=== PATIENT | female | born 1980 | race Caucasian/White ===

== ENCOUNTER → 2016-11-18 | Outpatient (CLI) | payer OTHER ==
[2016-11-18 10:42] LABS: CH 32.1; CHCM 33.7; HDW 2.52; HGB 13.9 gm/dL (11.4-16.0); MCH 31.7 pg (25.0-35.0); MCHC 33.1 g/dL (31.0-37.0); MCV 95.7 fL (80.0-100.0); Mean Platelet Volume 7.3; RBC 4.39 m/uL (3.80-5.40); RDW 12.3 % (11.5-15.5); WBC 7.1 k/uL (3.8-10.6)
[2016-11-18 11:15] LABS: Hemoglobin A1C 4.9 % (4.2-6.1)
[2016-11-18 11:20] LABS: ALT 23 U/L (9-52); AST 17 U/L (14-36); Alkaline Phosphatase 44 U/L (38-126); Anion Gap 11 mmol/L; Blood Urea Nitrogen 10 mg/dL (7-17); Calcium 9.3 mg/dL (8.4-10.2); Carbon Dioxide 26 mmol/L (22-30); Chloride 106 mmol/L (98-107); Glucose 97 mg/dL (74-99); Non-African American GFR(MDRD) >60 (>60 ml/min/1.73 sqM); Potassium 3.9 mmol/L (3.5-5.1); Sodium 143 mmol/L (137-145); Total Bilirubin 0.9 mg/dL (0.2-1.3); Total Protein 7.5 g/dL (6.3-8.2)
[2016-11-18 11:23] LABS: Follicle Stimulating Hormone 1.9 mIU/mL
[2016-11-18 11:24] LABS: Appearance,Urine Clear (Clear); Bilirubin,Urine Negative (Negative); Glucose,Urine (UA) Negative (Negative); Ketones,Urine Negative (Negative); Leukocyte Esterase,Urine Small (Negative); Mucus,Urine Occasional /hpf; Nitrite,Urine Negative (Negative); Particle Count 6796; Protein,Urine Trace (Negative); RBC,Urine 14 /hpf (0-5); Specific Gravity,Urine 1.024 (1.001-1.035); Squamous Epithelial Cell,Urine 5 /hpf (0-4); UA Billing (MACRO vs. MICRO) MICRO; Urobilinogen,Urine <2.0 mg/dL (<2.0); WBC,Urine 5 /hpf (0-5)
== END | disposition home or self-care (01) ==
LOC: LABWHC1 10:01
PROVIDERS: ATTEND Family Medicine
DX: Z00.00 Encounter for general adult medical examination without abnormal findings (principal)
CPT/HCPCS: 36415; 80053; 81001; 82533; 83001; 83036; 84439; 84443; 85027

== ENCOUNTER → 2020-03-26 | Outpatient (CLI) | payer OTHER ==
--- NOTE | 2020-03-26 12:42 | ECHOF ---
Referral Reason:R07.9 atypical chest pain MEASUREMENTS -------- HEIGHT: 180.3 cm WEIGHT: 78.5 kg BP: RVIDd: 2.8 cm (< 3.3) IVSd: 1.2 cm (0.6 - 1.1) LVIDd: 3.7 cm (3.9 - 5.3) LVPWd: 1.4 cm (0.6 - 1.1) IVSs: 1.6 cm LVIDs: 2.3 cm LVPWs: 1.7 cm LAESV Index (A-L): 15.66 ml/m Ao Diam: 3.1 cm (2.0 - 3.7) AV Cusp: 2.1 cm (1.5 - 2.6) MV EXCURSION: 17.310 mm (> 18.000) MV EF SLOPE: 100 mm/s (70 - 150) EPSS: 0.8 cm MV E Moses: 0.59 m/s MV DecT: 172 ms MV A Moses: 0.53 m/s MV E/A Ratio: 1.11 RAP: 5.00 mmHg RVSP: 17.61 mmHg FINDINGS -------- Sinus rhythm. This was a technically adequate study. The left ventricular size is normal. There is mild concentric left ventricular hypertrophy. Overa ll left ventricular systolic function is normal with, an EF between 55 - 60 %. The diastolic fillin g pattern is normal for the age of the patient 6.68. The right ventricle is normal in size. Normal LA size by volume 22+/-6 ml/m2. The right atrial size is normal. Interatrial and interventricular septum intact. The aortic valve is trileaflet and appears structurally normal. There is no evidence of aortic regu rgitation. There is no evidence of aortic stenosis. No mitral regurgitation. Trace tricuspid regurgitation present. There is no evidence of pulmonary hypertension. The right ventricular systolic pressure, as measured by Doppler, is 17.61mmHg. There is no pulmonic regurgitation present. The aortic root size is normal. Normal inferior vena cava with normal inspiratory collapse consistent with estimated right atrial pre ssure of 5 mmHg. There is no pericardial effusion. CONCLUSIONS -------- 1. The left ventricular size is normal. 2. There is mild concentric left ventricular hypertrophy. 3. Overall left ventricular systolic function is normal with, an EF between 55 - 60 %. 4. The diastolic filling pattern is normal for the age of the patient 6.68 5. Trace tricuspid regurgitation present. SERVICE DESK SPECIALIST: Suzanne Franklin RDCS
--- NOTE | 2020-03-26 16:31 | EST ---
EXERCISE STRESS AGE: 50 SEX: F HT: 5'11" WT: 173 lbs. PROTOCOL: Jacob STAGE: 5 DURATION OF EXERCISE: 12:45 HEART RATE REST: 87 BLOOD PRESSURE REST: 101/72 MAXIMUM HEART RATE ACHIEVED: 182 MAXIMUM BLOOD PRESSURE: 162/75 85% MPHR: 153 100% MPHR: 180 METS: 13.1 INDICATIONS: Short of breath. CLINICAL INFORMATION: Baseline EKG revealed normal sinus rhythm without significant ST-T changes. Patient walked for 12 minute 45 seconds, achieved a maximal heart rate of 182 beats per minute which is well above 85% of predicted maximal. Patient did not have any angina or arrhythmia. There were no EKG changes to indicate ischemia. By EKG criteria, this is a negative stress test with excellent exercise capacity. FINAL IMPRESSION: 1. Excellent exercise capacity. 2. There was some artifact on the EKG tracings. 3. No evidence of stress-induced ischemia on the basis of EKG criteria. 4. Patient did not have any angina and there was no significant arrhythmia. MMODL / IJN: [id number] /
== END | disposition home or self-care (01) ==
LOC: RADNMMAIN 10:27
PROVIDERS: ATTEND Family Medicine
DX: I51.7 Cardiomegaly (principal)
CPT/HCPCS: 93017; 93306

== ENCOUNTER → 2020-12-19 | Outpatient (CLI) | payer OTHER ==
--- NOTE | 2020-12-19 10:02 | US ---
EXAMINATION TYPE: US abdomen limited DATE OF EXAM: 12/19/2020 COMPARISON: NONE CLINICAL HISTORY: R10.11 RUQ abdominal pain. Patient complains of bloating, nausea/vomiting x 3 weeks . EXAM MEASUREMENTS: Liver Length: 17.9 cm Gallbladder Wall: 0.2 cm CBD: 0.5 cm Right Kidney: 10.9 x 5.0 x 4.0 cm Pancreas: No masses seen. Tail obscured by overlying bowel gas Liver: wnl Gallbladder: Large size = 10.2 x 6.3 x 5.1 cm, 1.5 cm stone stuck in neck. Multiple other mobile sto edilson within GB. Evidence for sonographic Miller's sign: No CBD: wnl Right Kidney: No hydronephrosis or masses seen IMPRESSION: Cholelithiasis.
== END | disposition home or self-care (01) ==
LOC: RADUSWWP 08:58
PROVIDERS: ATTEND Family Medicine
DX: K80.20 Calculus of gallbladder without cholecystitis without obstruction (principal)
CPT/HCPCS: 76705

== ENCOUNTER 2021-01-11 06:19 | Day surgery (SDC) | payer OTHER ==
[2021-01-08 09:27] VITALS: BMI 25.1
[~2021-01-11 06:19] MED LIST: ACETAMINOPHEN TAB 500 MG TAB PO PRN; DEXAMETHASONE SOD PHOSPHATE 4 MG/ML 1 ML VIAL IV ONE; HEPARIN SODIUM,PORCINE/PF 5,000 UNIT/0.5 ML SYRINGE SQ PRN; LACTATED RINGERS 1,000 ML IV SCH; LIDOCAINE 1% (10MG/ML) FOR IV START INTRADERMA PRN; MIDAZOLAM 2 MG/2 ML VIAL IV PRN; ONDANSETRON 4 MG/2 ML VIAL IVP ONE
[2021-01-11 06:56] VITALS: TEMP 98
[2021-01-11] MEDS ORDERED: HYDROmorphone 0.5 MG/0.5 ML SYRINGE IVP PRN (07:00)
[2021-01-11] MEDS ORDERED: SUCCINYLCHOLINE CHLORIDE 100 MG/5 ML SYR IV ONE (08:00)
[2021-01-11] MEDS ORDERED: NEOSTIGMINE 1 MG/ML 10 ML VIAL ONE (08:00)
[2021-01-11] MEDS ORDERED: KETOROLAC 15 MG/ML 1 ML VIAL ONE (08:00)
[2021-01-11] MEDS ORDERED: MIDAZOLAM 2 MG/2 ML VIAL ONE (08:00)
[2021-01-11] MEDS ORDERED: LIDOCAINE 1% INJ 10MG/ML (20 ML MDV) ONE (08:00)
[2021-01-11] MEDS ORDERED: PROPOFOL 10 MG/ML 20 ML VIAL IV ONE (08:00)
[2021-01-11] MEDS ORDERED: GLYCOPYRROLATE 0.2 MG/ML 2 ML VIAL ONE (08:00)
[2021-01-11] MEDS ORDERED: fentaNYL (PF) 50 MCG/ML 2 ML AMP ONE (08:00)
[2021-01-11] MEDS ORDERED: .MORPHINE SULFATE (INJ) 10 MG/ML SYRINGE ONE (08:00)
[2021-01-11] MEDS ORDERED: ROCURONIUM 10 MG/ML (5 ML VIAL) IV ONE (08:00)
[2021-01-11] MEDS ORDERED: BUPIVACAIN-EPI 0.5%-1:200,000 30 ML VIAL SQ ONE (08:21)
--- NOTE | 2021-01-11 09:18 | P.GSHP ---
History of Present Illness H&P Date: 01/11/21 Chief Complaint: right upper quadrant pain is a 40-year-old female who presents today for laparoscopic cholecystectomy. Patient whas had complaints of right upper quadrantcurrent quadrant pain.Groshong shows a gallstone impacted in the neck of the gallbladder. Past Medical History Additional Past Medical History / Comment(s): SEASONAL ALLERGIES. GALLBLADDER DISORDER History of Any Multi-Drug Resistant Organisms: None Reported Past Surgical History: No Surgical Hx Reported Past Anesthesia/Blood Transfusion Reactions: No Reported Reaction Smoking Status: Former smoker - Past Family History Mother Family Medical History: No Reported History Medications and Allergies Home Medications Medication Instructions Recorded Confirmed Type Norgestimate-Ethinyl Estradiol 1 each PO HS 01/08/21 01/11/21 History [Femynor 28 Tablet] Allergies Allergy/AdvReac Type Severity Reaction Status Date / Time No Known Allergies Allergy Verified 01/08/21 09:22 Surgical - Exam Vital Signs Temp Pulse Resp BP Pulse Ox 98.0 F 88 16 139/68 98 01/11/21 06:53 01/11/21 06:53 01/11/21 06:53 01/11/21 06:53 01/11/21 06:53 - General well developed, well nourished, no distress - Eyes PERRL - ENT normal pinna - Neck no masses - Respiratory normal expansion - Cardiovascular Rhythm: regular - Abdomen Abdomen: soft, non tender Assessment and Plan Assessment: right upper quadrant pain Cholelithiasis We'll perform laparoscopic cholecystectomy
--- NOTE | 2021-01-11 09:20 | P.OP ---
Date of Procedure: 01/11/21 Preoperative Diagnosis: cholelithiasis Postoperative Diagnosis: cholelithiasis Procedure(s) Performed: laparoscopic cholecystectomy Anesthesia: LOTUS Surgeon: Nicolas Ledesma Estimated Blood Loss (ml): 10 Pathology: other (gallbladder) Condition: stable Disposition: PACU Description of Procedure: The patient was placed on the operating table. The patient received a general endotracheal tube anesthesia. The patients abdomen was prepped and draped in the usual sterile fashion. Through an infraumbilical stab incision, the fascia of the anterior abdominal wall was grasped with a pair of Kochers and then the Veress needle was placed in the peritoneal cavity. Position of the Veress needle was confirmed with positive drop test. The abdomen was then insufflated. After adequate insufflation, the 10 mm trocar was placed in the peritoneal cavity. Following this the laparoscope was placed in the peritoneal cavity. The patient was placed in the head-up, right side up position and then a 5 mm trocar was placed in the right lateral and right subcostal position under direct visualization. A 8 mm trocar was placed in the epigastric position. The gallbladder was hydropic. The gallbladder was aspirated.The gallbladder was grasped in the fundus and infundibulum. Traction on the gallbladder was placed in the lateral and the cephalad positions. The triangle of Calot was visualized.. The cystic duct was bluntly dissected until the union of the c ystic duct and common bile duct was seen. A critical view of safety was achieved. The cystic duct was then divided and sealed with the Harmonic scissors. A PDS Endoloop was then placed throughout the cystic duct stump. The cystic artery divided and sealed with the Harmonic scissors. The gallbladder was then removed from the liver bed using Harmonic scissors. The gallbladder was then extracted through the epigastric port site. Operative field was checked for any bleeding spots and Harmonic scissors was used to coagulate the liver bed. The abdomen was irrigated. The trocars were removed. The skin was closed using interrupted 3-0 Vicryl suture. Dermabond dressing were applied. The patient tolerated the procedure well.
[2021-01-11 10:35] VITALS: BP 118/81; PULSE 85; RESP 18
== END 2021-01-11 11:02 | disposition home or self-care (01) ==
LOC: OR 06:19
PROVIDERS: ATTEND Surgery
DX: K80.10 Calculus of gallbladder with chronic cholecystitis without obstruction (principal); J30.2 Other seasonal allergic rhinitis; Z87.891 Personal history of nicotine dependence; Z79.3 Long term (current) use of hormonal contraceptives
CPT/HCPCS: 81025; 88304; 47562; J2250; J1100; J2710; J2270; J0690; J2405; J2001; J3010; J1885; J0330; J2704; J1644

== ENCOUNTER → 2022-09-24 | Outpatient (CLI) | payer BC, OTHER ==
--- NOTE | 2022-09-24 15:25 | XR ---
EXAMINATION TYPE: XR chest 2V DATE OF EXAM: 09/24/2022 1:40 PM COMPARISON: Chest radiographs from 09/04/2011 TECHNIQUE: XR chest 2V Frontal and lateral views of the chest. CLINICAL INDICATION:Female, 42 years old with history of J20.9 Acute Bronchitis; FINDINGS: Lungs/Pleura: There is no evidence of pleural effusion, focal consolidation, or pneumothorax. Pulmonary vascularity: Unremarkable. Heart/mediastinum: Cardiomediastinal silhouette is unremarkable. Musculoskeletal: No acute osseous pathology. IMPRESSION: No acute cardiopulmonary disease/process.
== END | disposition home or self-care (01) ==
LOC: RADXRMAIN 13:14
PROVIDERS: ATTEND Family Medicine
DX: J20.9 Acute bronchitis, unspecified (principal)
CPT/HCPCS: 71046

== ENCOUNTER → 2023-02-26 | Outpatient (CLI) | payer BC, OTHER ==
[2023-02-26 20:56] LABS: Alternaria alternata IgE <0.10 kU/L; Aspergillus fumagatus IgE <0.10 kU/L; Birch IgE <0.10 kU/L; Cat Epith & Dander IgE <0.10 kU/L; Cladosporian herbarum IgE <0.10 kU/L; Cockroach IgE <0.10 kU/L; Dermato. farinae IgE <0.10 kU/L; Dog Dander IgE <0.10 kU/L; Elm IgE <0.10 kU/L; Maple (Box Elder) IgE <0.10 kU/L; Oak IgE <0.10 kU/L; Ragweed,Common IgE <0.10 kU/L; Red Top (Bentgrass) IgE <0.10 kU/L
== END | disposition home or self-care (01) ==
LOC: LABWHC1 08:43
PROVIDERS: ATTEND Internal Medicine Critical Care Medicine
DX: R05.3 Chronic cough (principal)
CPT/HCPCS: 36415; 82785; 85008; 86003

== ENCOUNTER → 2023-03-10 | Outpatient (CLI) | payer BC, OTHER ==
--- NOTE | 2023-03-11 08:17 | CT ---
EXAMINATION TYPE: CT sinus wo con DATE OF EXAM: 03/10/2023 COMPARISON: None HISTORY: sinusitis CT DLP: 624.2 mGycm. Automated Exposure Control for Dose Reduction was Utilized. TECHNIQUE: CT scan of the sinuses is performed without contrast, axial images are obtained, coronal r eformatted images are also reviewed. FINDINGS: The paranasal sinuses including the frontal, ethmoid, sphenoid, and maxillary sinuses bila terally are well-aerated mild ethmoidal and bilateral maxillary sinus mucosal thickening. Sphenoid an d frontal sinuses normal. No air fluid levels.. The ostiomeatal complex is patent bilaterally on the coronal images. Slight nasal septal deviation with a moderate right-sided trevor bullosa. Visualized portion of mastoid air cells show no abnormal opacification. The globes are intact bilate rally. IMPRESSION: 1. Mild chronic sinusitis ethmoid air cells and bilateral maxillary sinuses..
--- NOTE | 2023-03-11 08:24 | CT ---
EXAMINATION TYPE: CT chest w con DATE OF EXAM: 03/10/2023 COMPARISON: None HISTORY: chronic cough CT DLP: 405.3 mGycm Automated exposure control for dose reduction was used. TECHNIQUE: CT scan of the chest is performed with IV Contrast, patient injected with 100ml mL of Isovue 300. [place] P Images are created on CT scanner and reviewed. 3D reconstructed images are created on an [employer] workstation and reviewed. FINDINGS: LUNGS: Versus subsegmental changes dependent posterior portion right upper and bilateral lower lobes There is no pleural effusion or pneumothorax seen. The tracheobronchial tree is patent. MEDIASTINUM: There are no greater than 1 cm hilar or mediastinal lymph nodes. No pericardial effusi on is seen. OTHER: A sclerotic density involving the lower thoracic vertebral segment most compatible with heman gioma. Small hiatal hernia. IMPRESSION: 1. Groundglass and subsegmental consolidation dependent portion of the right upper lobe and bilateral lower lobe. Favor atelectasis over pneumonia.
== END | disposition home or self-care (01) ==
LOC: RADCTMAIN 16:39
PROVIDERS: ATTEND Internal Medicine Critical Care Medicine
DX: J32.0 Chronic maxillary sinusitis (principal); J32.2 Chronic ethmoidal sinusitis; R05.3 Chronic cough; R91.8 Other nonspecific abnormal finding of lung field
CPT/HCPCS: 71260; 70486; Q9967

== ENCOUNTER → 2023-12-22 | Outpatient (CLI) | payer BC, OTHER ==
--- NOTE | 2023-12-22 18:38 | CT ---
EXAMINATION TYPE: CT sinus wo con DATE OF EXAM: 12/22/2023 COMPARISON: 03/10/2023 HISTORY: Chronic sinusitis CT DLP: 350.9 mGycm. Automated Exposure Control for Dose Reduction was Utilized. TECHNIQUE: CT scan of the sinuses is performed without contrast, axial images are obtained, coronal r eformatted images are also reviewed. Findings: There is persistent stable mild mucosal thickening in the inferior aspects of both maxillary sinuses and within a few scattered ethmoid air cells.. The frontal and sphenoid sinuses are well aerated. There are no air-fluid level to suggest acute sinusitis. The ostiomeatal complexes are patent bilaterally. Intraorbital contents are normal and symmetric. The mastoid air cells and middle ear cavities are well aerated. No focal osseous lesions are seen. Nasal cavity is unremarkable. IMPRESSION: Stable mild chronic sinusitis involving the maxillary sinuses and ethmoid air cells as described blanche bernal
--- NOTE | 2023-12-22 18:45 | CT ---
EXAMINATION TYPE: CT chest w con DATE OF EXAM: 12/22/2023 COMPARISON: 03/10/2023 HISTORY: Chronic sinusitis CT DLP: 314.2 mGycm Automated exposure control for dose reduction was used. TECHNIQUE: CT scan of the chest is performed with IV Contrast, patient injected with 100 ml mL of Isovue 300. M IP Images are created on CT scanner and reviewed. 3D reconstructed images are created on an [employer] workstation and reviewed. FINDINGS: There is no suspicious lung mass or nodule. There is no abnormal airspace/consolidated density or abnormal interstitial density. There is no daljit bronchial cuffing or bronchiectasis. There is no pleural effusion, pleural thickening or pneumothorax. The great vessels chest are normal no mediastinal, hilar or axillary adenopathy. Limited scanning through the upper abdomen reveals no gross abnormality. No focal osseous lesions are seen. IMPRESSION: 1. No acute cardiopulmonary disease. 2. No evidence of interstitial lung disease. 3. No suspicious lung mass or nodule.
== END | disposition home or self-care (01) ==
LOC: RADCTMAIN 08:57
PROVIDERS: ATTEND Otolaryngology
DX: J32.0 Chronic maxillary sinusitis (principal)
CPT/HCPCS: 71260; 70486; Q9967

== ENCOUNTER → 2024-08-09 | Outpatient (CLI) | payer BC ==
--- NOTE | 2024-08-15 10:23 | MM ---
Reason for Exam: Screening (asymptomatic). Last mammogram was performed 7 year(s) and 11 month(s) ago. Patient History: Menarche at age 12. First Full-Term at age 20. Patient used Hormonal Contraceptives for 25 years. Last menstrual period: 08/03/2024 Risk Values: Khushi 5 year model risk: 0.7%. NCI Lifetime model risk: 8.7%. Prior Study Comparison: 09/04/2016 Bilateral Screening Mammogram, [facility]. Tissue Density: There are scattered areas of fibroglandular density. Findings: Analyzed By CAD. Right breast: There is no suspicious group of microcalcifications or new suspicious mass. Left breast: There is no suspicious group of microcalcifications or new suspicious mass. Overall Assessment: Negative, BI-RAD 1 Management: Screening Mammogram of both breasts in [address] [facility] will attempt to contact patient to return for supplemental views and ultrasound if indicated. Patient should continue monthly self-breast exams. A clinical breast exam by your physician is recommended on an annual basis. This exam should not preclude additional follow-up of suspicious palpable abnormalities. Note on Khushi scores and lifetime risk: 1. A Khushi score greater than 3% is considered moderate risk. If this is the case, consider specialist referral to assess eligibility for a risk reducing agent. 2. If overall lifetime risk for the development of breast cancer is 20% or higher, the patient may qualify for future screening with alternating mammogram and breast MRI. [facility], , 08/15/2024 10:17 AM. Electronically signed and approved by: Dwight Velarde DO
== END | disposition home or self-care (01) ==
LOC: RADMAMWWP 06:57
PROVIDERS: ATTEND Obstetrics & Gynecology
DX: Z12.31 Encounter for screening mammogram for malignant neoplasm of breast (principal); R92.323 Mammographic fibroglandular density, bilateral breasts
CPT/HCPCS: 77067